=== PATIENT | female | born 1955 | race Caucasian/White ===

== ENCOUNTER → 2016-09-05 | Outpatient (CLI) | payer OTHER ==
[~2016-09-05] MED LIST: ASA325 MG PO; CALCIUM 600 +1 EA13 PO; DAILY MULTIPLE1 EAC1 PO; ESTRADIOL1 EAC6 TD; NORCO 5-325 TA1 EACH PO
== END | disposition home or self-care (01) ==
LOC: PTH.S 10:36 → RAD.S 11:00
DX: C18.9 Malignant neoplasm of colon, unspecified (principal); K57.90 Diverticulosis of intestine, part unspecified, without perforation or abscess without bleeding

== ENCOUNTER → 2016-09-11 | Outpatient (CLI) | payer OTHER | END | disposition home or self-care (01) | LOC: PTH.S 07:40 | DX: Z01.818 Encounter for other preprocedural examination (principal); Z90.49 Acquired absence of other specified parts of digestive tract; Z90.710 Acquired absence of both cervix and uterus; Z85.038 Personal history of other malignant neoplasm of large intestine ==

== ENCOUNTER 2016-09-18 07:08 | Inpatient (IN) | payer OTHER ==
[~2016-09-18] VITALS: Ht 167.6 cm; Wt 55.9 kg
[2016-09-21] MEDS ORDERED: CALCIUM 600 +1 EA13 PO (11:49)
[2016-09-21] MEDS ORDERED: DAILY MULTIPLE1 EAC1 PO (11:49)
[2016-09-21] MEDS ORDERED: ESTRADIOL1 EAC6 TD (11:50)
[2016-09-21] MEDS ORDERED: ASA325 MG PO (11:50)
[2016-09-21] MEDS ORDERED: NORCO 5-325 TA1 EACH PO (11:51)
--- NOTE | 2016-10-02 10:18 | OR ---
ADMIT: 09/18/2016 RM/LOC: 518 [facility] MR#: [id number] [id number] [place], [place] [id number] [address] [place] [address] Operative/Delivery Room Report SEX: F AGE: 61 : 1955 SURGERY DATE: 09/18/2016 SURGEON: Ziyad Ahuja MD MOVIE THEATER USHER: JEAN CLAUDE Gonzalez PREPROCEDURE DIAGNOSIS: Sigmoid colon cancer. POSTPROCEDURE DIAGNOSIS: Sigmoid colon cancer. PROCEDURE: Laparoscopic sigmoid colectomy. INDICATIONS: The patient is a 61-year-old female, who underwent recent colonoscopy screening, was found to have a mid sigmoid colon cancer, who after preoperative workup now presents for laparoscopic sigmoid colectomy. DESCRIPTION OF PROCEDURE: The patient was taken to the operating room. General endotracheal anesthesia was induced. Her legs were placed in low lithotomy position. The abdomen was prepped and draped in normal sterile fashion. The case was begun by making a transverse, supraumbilical 5 mm skin incision using #11 blade. A retractable 5 mm port was placed within the abdomen. The abdomen was insufflated with CO2 to an intra-abdominal pressure of 15 mmHg. A camera was placed showing no bowel or vascular injury. A right lower quadrant 12 mm port was placed under direct vision. A right upper quadrant 5 mm port as well as a left lower quadrant 5 mm port was placed under direct vision. The case was begun by placing the patient in Trendelenburg position, all the small bowel was eviscerated out of the pelvis into the upper abdomen. I did examine the left and right lobe of the liver seeing no obvious evidence of any type of metastatic disease. I clearly identified blue dye within the mid sigmoid colon. I mobilized the sigmoid and left colon from the retroperitoneum along the white line of Toldt using Harmonic scalpel dissection and clearly and easily identifying the left ureter. I then was able to lift the sigmoid colon well anteriorly and clearly identified the takeoff of the inferior mesenteric artery. Divided the mesenteric peritoneum using Harmonic Scalpel and divided the takeoff of the inferior mesenteric artery with an Endo FRANCIA 45, 2.5 mm stapler. I then identified the proximal rectum, made a retrorectal mesenteric defect with Harmonic scalpel, divided the rectum with an Endo-FRANCIA 45, 3.5 mm stapler. Then divided the remainder of the rectosigmoid mesentery just above superior hemorrhoidal artery with Harmonic scalpel and a couple firings of an Endo FRANCIA 45, 2.5 mm stapler. I then divided the sigmoid mesentery up to our proposed sigmoid staple line, did all this intra-abdominally. The patient had a nice floppy length of sigmoid colon and she was thin, so I elected to remove my specimen out through our 12 mm port sites. We desufflated the intra-abdominal space, enlarged the 12 mm port site with a #10 blade and cautery, placed a wound protector within the abdomen, was able to bring the specimen out through the right lower quadrant port site. I was able to clearly identify the area of demarcation from well vascularized devascularized bowel. In fact, could even visually observe vessels proximally that were pulsatile. I placed a large pursestring suture ADMIT: 09/18/2016 RM/LOC: 518 [facility] MR#: [id number] [address] [place] [id number] ZO CRUZ [address] [place] [address] Operative/Delivery Room Report SEX: F AGE: 61 : 1955 across the proximal sigmoid colon, fired the pursestring, divided the specimen off the operative field, sent it for permanent sectioning. I placed a 29 EEA anvil into our proximal pursestring and colon, secured the pursestring down over 29 EEA anvil, divided the pericolonic fatty connective tissue using cautery, placed the specimen back into the intra-abdominal space, removed the wound protector, closed the fascial incision in the right lower quadrant with 2 layers of running single stranded #1 PDS suture, re-insufflated the intra- abdominal space, brought dilators up through the rectum to our rectal staple line and then brought our 29 EEA stapler up to the rectal staple line. I did divide some of the mesentery posterior to our rectal staple line because I wanted to come right out our staple line with our circular stapler. After doing this, I did bring the spike out right through the middle of our rectal staple line, approximated the 2 ends of the stapler very easily. We secured and tightened down the circular staple until I was satisfied with the bowel approximation, fired the stapler, removed the stapler. We identified full- thickness both proximal and distal rings. There was visually an excellent blood supply to this anastomosis and absolutely no tension on it to speak of. I did irrigate the pelvis copiously and suctioned out although we had minimal to no bleeding. I did place a staple line under some water, placed a proctoscope into the rectum, insufflated the rectum through the anastomosis showing no evidence of air bubbling or leakage, desufflated the rectum, again irrigated the pelvis and suctioned it out. I placed the patient out of Trendelenburg position again with all our small and large bowel loops and endorsed nice normal anatomic position. I injected 0.5% Marcaine subdermally and subfascially for postoperative analgesia and removed all of our ports sites. I closed the skin incisions with interrupted skin maribel. The wounds were cleaned and dried. Dressings were applied over the top. Needle, sponge, and instrument counts were correct at the end of the case. The patient was extubated and wheeled to recovery room in good condition. Ziyad Ahuja MD/ leisa JOB #: [id number] CC: Ziyad Ahuja, Attending Physician Ziyad Black, Family Physician
--- NOTE | 2016-11-09 08:51 | DS ---
ADMIT: 09/18/2016 RM/LOC: 518 [facility] MR#: [id number] [address] [facility] [address] [place], [place] [id number] [address] [place] [address] Discharge Summary SEX: F AGE: 61 : 1955 ADMISSION DATE: 09/18/2016 DISCHARGE DATE: 09/20/2016 ADMITTING DIAGNOSIS: Sigmoid colon cancer. DISMISSAL DIAGNOSES: 1. Invasive adenocarcinoma of the sigmoid colon. Primary tumor is PT-II with negative metastatic disease. 2. Cervical cancer. 3. Breast surgery. 4. Appendectomy. 5. Gallbladder surgery. 6. Hysterectomy. PROCEDURES: Laparoscopic sigmoid colectomy. HOSPITAL COURSE: The patient was an inpatient admit with routine med/surg orders. After surgery, the patient transferred to the floor without any complications. She was started on morphine PLATE GRAINER for pain control and was given clears. Overall, the patient recovered well while in the hospital. Her diet was advanced. She had normal return of her bowel function. Her pain was controlled so she was weaned off her morphine PLATE GRAINER and was tolerating oral pain medications. A Howard that was placed intraoperatively was pulled on hospital day #1. On postop day #2, the patient continued to recover well and was deemed stable to discharge home. She discharged home on 09/20/2016. At this time, vitals were stable, and her lab work normalized. DISCHARGE INSTRUCTIONS: 1. Take dressings off Wednesday. 2. Activity as tolerated. 3. Regular diet. 4. Follow up with Dr. Ahuja in 10 days. Call for appointment. DISCHARGE MEDICATION LIST: 1. Multivitamin supplement daily. 2. Calcium and vitamin D3 600 mg daily. 3. Estradiol 0.06 mg patch every Wednesday. 4. Aspirin 325 mg daily. 5. Jackson 5/325, 1-2 tabs q.4 hours p.r.n. JEAN CLAUDE Gonzalez / Ziyad Ahuja MD / curry JOB #: [id number] CC: Ziyad Ahuja MD, Attending Physician Ziyad Black MD, Family Physician
== END 2016-09-20 11:25 | disposition home or self-care (01) | DRG 331 ==
LOC: WOR 07:08 → 5MS 11:20
PROVIDERS: ADMIT Surgery
PROC: 0DTN4ZZ Resection of Sigmoid Colon, Percutaneous Endoscopic Approach (ICD-10-PCS; principal; 2016-09-18)
PROC: 3E0234Z Introduction of Serum, Toxoid and Vaccine into Muscle, Percutaneous Approach (ICD-10-PCS; 2016-09-20)
DX: C18.7 Malignant neoplasm of sigmoid colon (principal); K57.90 Diverticulosis of intestine, part unspecified, without perforation or abscess without bleeding; Z23 Encounter for immunization; Z79.82 Long term (current) use of aspirin; Z87.891 Personal history of nicotine dependence